=== PATIENT | female | born 2005 | race Caucasian/White ===

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

== ENCOUNTER 2025-01-02 22:35 | Emergency (ER) | payer MEDICAID ==
[~2025-01-02] VITALS: Ht 177.8 cm; Wt 48.0 kg
[~2025-01-02 22:35] MED LIST: PREN1TAB23 PO
[2025-01-02 22:42] VITALS: O2SAT 100
[2025-01-02] MEDS: SODIUM CHLORIDE 0.9% 1,000 ML IV ONE (23:03)
[2025-01-02 23:05] LABS: BASOPHILS % 0.4 % (0.0-2.0); EOSINOPHILS % 1.7 % (0.0-5.0); HEMATOCRIT. 39.5 % (36.0-48.0); HEMOGLOBIN. 13.3 g/dL (12.0-16.0); LYMPHOCYTES % 40.1 % (20.0-50.0); MEAN CORPUSCULAR HEMOGLOBIN 29.5 pg (28.0-32.0); MEAN CORPUSCULAR HGB CONC 33.6 g/dL (31.0-37.0); MEAN CORPUSCULAR VOLUME 87.9 fL (81.0-99.0); MEAN PLATELET VOLUME 8.3 fl (7.4-10.4); MONOCYTES % 4.6 % (2.0-8.0); NEUTROPHILS % 53.2 % (40.0-76.0); PLATELET 372 x1000/uL (130-400); RED BLOOD CELL COUNT 4.49 mill/uL (4.2-5.4); RED CELL DISTRIBUTION WIDTH 13.3 % (11.6-14.6); WHITE BLOOD COUNT 12.2 x1000/uL (4.5-11.0)
[2025-01-02] MEDS: ONDANSETRON HCL 4MG/2ML INJ IV STA (23:08)
[2025-01-02 23:17] LABS: CHLORIDE 105 mEq/L (98-107); POTASSIUM 3.4 mEq/L (3.5-5.1); SODIUM 139 mEq/L (136-145)
[2025-01-02 23:18] LABS: CALCIUM 9.7 mg/dL (8.7-10.4); CARBON DIOXIDE 22 mEq/L (21-32)
[2025-01-02 23:23] LABS: CREATININE 0.8 mg/dL (0.6-1.0); GLUCOSE 188 mg/dL (70-105); UREA NITROGEN BLOOD 16 mg/dL (9-23)
[2025-01-02 23:24] LABS: ETHANOL BLOOD < 10 mg/dL (<10)
[2025-01-02 23:25] LABS: ACETAMINOPHEN < 2 ug/mL (10-30)
[2025-01-03] MEDS: KCL 20MEQ/100ML PREMIX 100 ML IV SCH (00:21)
[2025-01-03 01:10] LABS: HCG SCREEN NEGATIVE
[2025-01-03] MEDS: SODIUM CHLORIDE 0.9% 1,000 ML IV ONE (03:00)
[2025-01-03 05:03] VITALS: TEMP 36.9
[2025-01-03 05:37] VITALS: BP 99/55; PULSE 75; RESP 13; O2SAT 100
== END 2025-01-03 05:51 | disposition home or self-care (01) ==
LOC: ER 22:35
DX: T40.711A Poisoning by cannabis, accidental (unintentional), initial encounter (principal); Z79.899 Other long term (current) drug therapy; Y92.89 Other specified places as the place of occurrence of the external cause
CPT/HCPCS: 80048; 80307; 80329; 80320; 84703; 85025; 36415; 96361 ×2; 99285; 96365; J7030 ×2; J3480; G0480